=== PATIENT | male | born 1960 | race Caucasian/White ===

== ENCOUNTER 2017-08-29 09:35 | Emergency (ER) | payer SELFPAY, BC | END 2017-08-29 15:01 | disposition left against medical advice (07) | LOC: FTE 09:35 | DX: Z53.21 Procedure and treatment not carried out due to patient leaving prior to being seen by health care provider (principal) ==

== ENCOUNTER 2019-03-09 06:14 | Emergency (ER) | payer BC ==
[2019-03-09] MEDS: MECLIZINE 12.5 MG TAB PO (06:48)
[2019-03-09] MEDS: ONDANSETRON 4 MG INJ IV (06:48)
[2019-03-09] MEDS: SOD CHLORIDE 0.9% 1,000 ML IV (06:49)
[2019-03-09 07:03] LABS: ADD MAN DIFF? NO
[2019-03-09 07:07] LABS: ABNORMAL IP MESSAGE 1; BASOPHIL # 0.1 10^3/ul (0.0-0.1); BASOPHILS % 0.8 % (0.0-2.0); EOSINOPHILS # 0.1 10^3/ul (0.0-0.5); EOSINOPHILS % 1.6 % (0.0-7.0); HEMATOCRIT 48.4 % (42.0-52.0); HEMOGLOBIN 16.1 g/dl (14.0-18.0); LYMPHOCYTES # 1.2 10^3/ul (0.8-2.9); LYMPHOCYTES % 16.4 % (15.0-51.0); MEAN CORPUSCULAR HEMOGLOBIN 30.3 pg (29.0-33.0); MEAN CORPUSCULAR HGB CONC 33.3 g/dl (32.0-37.0); MEAN CORPUSCULAR VOLUME 91.1 fl (82.0-101.0); MEAN PLATELET VOLUME 13.2 fl (7.4-10.4); MONOCYTE # 0.6 10^3/ul (0.3-0.9); MONOCYTES % 8.3 % (0.0-11.0); NEUTROPHIL # 5.4 10^3/ul (1.6-7.5); NEUTROPHILS % 72.5 % (39.0-77.0); PLATELET COUNT 134 10^3/UL (140-415); POSITIVE DIFF @See below; RED BLOOD COUNT 5.31 10^6/ul (4.70-6.10); RED CELL DISTRIBUTION WIDTH 13.2 % (11.5-14.5)
[2019-03-09 07:07] LABS: WHITE BLOOD COUNT 7.5 10^3/ul (4.8-10.8)
[2019-03-09 07:26] LABS: INR 0.91; PARTIAL THROMBOPLASTIN TIME 25.5 Sec (23.0-35.0); PROTIME 12.4 Sec (11.9-14.9)
[2019-03-09 07:31] LABS: ALANINE AMINOTRANSFERASE 42 IU/L (13-69); ALBUMIN 4.3 g/dl (3.3-4.9); ALBUMIN/GLOBULIN RATIO 1.34; ALKALINE PHOSPHATASE 75 IU/L (42-121); ANION GAP 10 (5-13); ASPARTATE AMINO TRANSFERASE 32 IU/L (15-46); BILIRUBIN,INDIRECT 0.4 mg/dl (0-1.1); BILIRUBIN,TOTAL 0.4 mg/dl (0.2-1.3); BLOOD UREA NITROGEN 28 mg/dl (7-20); CALCIUM 9.7 mg/dl (8.4-10.2); CARBON DIOXIDE 27 mmol/L (21-31); CHLORIDE 102 mmol/L (97-110); CREATININE 0.79 mg/dl (0.61-1.24); Estimated GFR > 60 mL/min (>60); GLUCOSE 286 mg/dl (70-220); POTASSIUM 4.1 mmol/L (3.5-5.1); SODIUM 139 mmol/L (135-144); TOTAL PROTEIN 7.5 g/dl (6.1-8.1)
[2019-03-09 07:42] LABS: TROPONIN-I 0.014 ng/ml (0.000-0.120)
== END 2019-03-09 09:12 | disposition home or self-care (01) ==
LOC: FTE 06:14
DX: H81.399 Other peripheral vertigo, unspecified ear (principal); J01.00 Acute maxillary sinusitis, unspecified; E11.65 Type 2 diabetes mellitus with hyperglycemia; I10 Essential (primary) hypertension
CPT/HCPCS: 70450; 80053; 84484; 85025; 85610; 85730; 93005; 96374; 99285-25